=== PATIENT | male | born 1990 | race Caucasian/White ===

== ENCOUNTER 2024-10-27 13:54 | Day surgery (SDC) | payer OTHER ==
[2024-10-26 09:24] VITALS: BMI 28.1
[2024-10-27] MEDS: LACTATED RINGERS 1,000 ML IV SCH (14:55)
[2024-10-27] MEDS: IV FLUID CONTINUATION 1,000 ML IV ONE (14:55)
[2024-10-27 14:57] VITALS: RESP 16; TEMP 97
[2024-10-27] MEDS ORDERED: PROPOFOL 10 MG/ML 20 ML VIAL IV ONE (15:32)
--- NOTE | 2024-10-27 15:48 | P.PCN ---
Date of Procedure: 10/27/24 Procedure(s) Performed: BRIEF HISTORY: Patient is a 34-year-old pleasant white male scheduled for an elective colonoscopy as a part of evaluation of right lower quadrant abdominal pain for the 6 months duration. PROCEDURE PERFORMED: Colonoscopy. PREOPERATIVE DIAGNOSIS: Right lower quadrant abdominal pain of 6 months duration. IV sedation per Anesthesia. PROCEDURE: After informed consent was obtained, the patient, was brought into the endoscopy unit. IV sedation was administered by Anesthesia under continuous monitoring. Digital rectal examination was normal. Initially the Olympus CF-160 flexible video colonoscope was then inserted in the rectum, gradually advanced into the cecum without any difficulty. Careful examination was performed as the scope was gradually being withdrawn. Ileocecal valve and the appendiceal orifice were visualized and appeared normal. Prep was fair.. Mucosa of the cecum, ascending colon, transverse colon, descending colon, sigmoid colon, and rectum appeared normal. Retroflexion was performed in the rectum and grade 2 internal hemorrhoids were seen. The patient tolerated the procedure well. IMPRESSION: Normal-appearing colon from rectum to cecum with no evidence of colorectal neoplasia. Grade 2 internal hemorrhoids. RECOMMENDATIONS: Findings of this examination were discussed with the patient as well as his family. He was advised to be on a high-fiber diet and fiber supplements on a regular basis. Recommend repeat screening colonoscopy in 10 years..
[2024-10-27 16:11] VITALS: BP 135/68; PULSE 87
== END 2024-10-27 16:24 | disposition home or self-care (01) ==
LOC: ORWHC2ENDO 13:54
PROVIDERS: ATTEND Internal Medicine Gastroenterology
DX: K64.1 Second degree hemorrhoids (principal); G47.33 Obstructive sleep apnea (adult) (pediatric); Z89.442 Acquired absence of left ankle; Z88.2 Allergy status to sulfonamides
CPT/HCPCS: 45378; J2704